=== PATIENT | male | born 1995 | race African-American/Black ===

== ENCOUNTER 2017-01-01 13:22 | Emergency (ER) | payer OTHER ==
[~2017-01-01] VITALS: Ht 180.3 cm; Wt 81.6 kg
[2017-01-01] MEDS ORDERED: TYLE325T5 PO (15:27)
[2017-01-01] MEDS ORDERED: KETOROLAC 60 MG/2 ML VIAL (J1885) IM ONE (15:30)
[2017-01-01 16:01] VITALS: BP 149/74
== END 2017-01-01 16:02 | disposition home or self-care (01) ==
LOC: M ED 14:54
DX: S80.02XA Contusion of left knee, initial encounter (principal); S00.83XA Contusion of other part of head, initial encounter; S60.011A Contusion of right thumb without damage to nail, initial encounter; Y04.8XXA Assault by other bodily force, initial encounter; Y92.89 Other specified places as the place of occurrence of the external cause; Y93.89 Activity, other specified; Y99.8 Other external cause status; F17.200 Nicotine dependence, unspecified, uncomplicated; Z88.0 Allergy status to penicillin
CPT/HCPCS: 96372; 99282; J1885